=== PATIENT | female | born 2000 | race American Indian/Alaskan Native ===

== ENCOUNTER → 2020-08-13 16:20 | Outpatient (BNVA) | payer OTHER, SELFPAY | PROVIDERS: Visit Provider Nurse Practitioner Family | DX: Z11.59 Encounter for screening for other viral diseases (principal); J06.9 Acute upper respiratory infection, unspecified | CPT/HCPCS: 87635 ==

== ENCOUNTER → 2020-12-16 13:29 | Outpatient (BNVA) | payer OTHER, SELFPAY | PROVIDERS: Visit Provider Nurse Practitioner | DX: Z20.828 Contact with and (suspected) exposure to other viral communicable diseases (principal); J20.9 Acute bronchitis, unspecified | CPT/HCPCS: 87635 ==

== ENCOUNTER 2021-04-09 13:20 | Emergency (ER) | payer OTHER, SELFPAY ==
[2021-04-09 13:28] VITALS: BP 137/97; PULSE 84; RESP 16; TEMP 37.5; O2SAT 98; BMI 34.7
--- NOTE | 2021-04-09 13:33 | XR_ITS ---
WS: [id number] Exam: XR chest 1V portable [id number] Date/Time of Exam: 04/09/2021 1:38 PM Reason For Exam: fall No priors. Findings: The lungs are clear and fully expanded. Costophrenic angles are sharp. No infiltrates. Bronchovascula r relief appears normal. Cardiac silhouette is unremarkable. Bony elements are intact. XR/XR chest 1V portable [id number] IMPRESSION: Unremarkable chest radiograph.
--- NOTE | 2021-04-09 13:33 | XR_ITS ---
WS: [id number] Exam: XR shoulder LT min 2V* [id number] Date/Time of Exam: 04/09/2021 1:38 PM Reason For Exam: fall The projections of the shoulder reveal no fractures, anomalies, soft tissue swelling, or calcificatio ns. There is normal bony alignment. No irregularity of the bony architecture is noted. XR/XR shoulder LT min 2V* [id number] IMPRESSION: Negative left shoulder.
--- NOTE | 2021-04-09 13:47 | XR_ITS ---
WS: [id number] Exam: XR ribs LT mn 3V w CXR1V [id number] Date/Time of Exam: 04/09/2021 1:47 PM Reason For Exam: fall No acute left rib fracture or pneumothorax. The lungs are bilaterally clear. Normal cardiomediastinal structures. XR/XR ribs LT mn 3V w CXR1V [id number] IMPRESSION: 1. Unremarkable left rib study. No acute cardiopulmonary finding.
--- NOTE | 2021-04-09 13:47 | ED_ITS ---
HPI - Fall General: Chief Complaint: Fall Stated Complaint: L side pain, fell,hard to breathe. Time Seen by Provider: 04/09/21 13:44 Source: patient Mode of arrival: ambulatory Limitations: no limitations History of Present Illness: HPI Narrative: Patient is a 21-year-old female who presents to ED today with a complaint of left rib pain following a fall. Patient tells me 2 days ago she was going up a flight of stairs when she tripped and fell secondary to the stairs being wet. She states she landed onto the left side of her chest and has had pain since. She has not noticed any bruising. Denies shortness of breath or difficulty breathing. No other injury sustained. MD complaint: fall Onset (ago): day(s) Fall from: standing Fall witnessed: no Place fall occurred: home Loss of consciousness: None Prolonged down time: no Symptoms prior to fall: none Context: tripped/slipped Location of injury: chest Associated symptoms-after fall: Reports no associated symptoms and chest pain (chest wall pain); Denies abdominal pain, difficulty walking, headache(s), lightheadedness or neck pain Review of Systems Const: Denies: fever(s) Eyes: Denies: change in vision or blurry vision Card: Reports: chest pain (chest wall pain); Denies: palpitations, irregular heart rhythm, edema, swelling of feet/ankles, lightheadedness, syncope, pre-syncope, dyspnea on exertion, orthopnea or leg pain with exertion Resp: Denies: dyspnea, wheezing, stridor, hemoptysis or chest congestion GI: Denies: abdominal pain, nausea or vomiting Musc: Denies: neck pain, back pain, extremity pain or joint pain Neuro: Denies: headache(s), difficulty walking or dizziness [facility] PFSH: Social History Smoking and tobacco status: current every day smoker e-cigarettes Female Reproductive History: Date of last menstrual period: 04/09/21 Physical Exam Const: COMMON NORMALS: no acute distress, average body habitus, patient oriented x3, no limitations, healthy appearing, alert and well nourished GENERAL APPEARANCE: cooperative ORIENTATION/CONSCIOUSNESS: Yes awake, Yes oriented to person, Yes oriented to place and Yes oriented to time HENMT: COMMON NORMALS: normocephalic and atraumatic HEAD & SCALP: normocephalic and atraumatic Chest: COMMONS NORMALS: normal inspection of the chest OTHER: TTP L anterior mid to lower ribs; no crepitus Resp: COMMON NORMALS: normal respiratory effort and clear to auscultation bilaterally AUSCULTATION: clear to auscultation bilaterally Cardio: COMMON NORMALS: regular rate and regular rhythm RATE: regular rate RHYTHM: regular rhythm GI: COMMON NORMALS: Normal to inspection, nondistended, normoactive bowel sounds present, Soft to palpation, non-tender, No hepatosplenomegaly present and no masses PALPATION: Yes Soft to palpation and Yes No hepatosplenomegaly present Extremity: COMMON NORMALS: normal to inspection and full ROM GENERAL: Yes normal exam except as noted Neuro: COMMON NORMALS: patient oriented x3 SENSORIUM/ORIENTATION: Yes alert, Yes oriented to person, Yes oriented to place and Yes oriented to time Skin: COMMON NORMALS: no rashes or lesions noted GENERAL SKIN EXAM: no rashes or lesions noted TRAUMA: no lacerations or abrasions Course Vital Signs: Vital signs: Vital Signs Temperature 99.5 F 04/09/21 13:28 Pulse Rate 84 04/09/21 13:28 Respiratory Rate 16 04/09/21 13:28 Blood Pressure 137/97 04/09/21 13:28 Pulse Oximetry 98 04/09/21 13:28 MDM - Fall MDM Narrative: Medical decision making narrative: CXR and L shoulder XRs initially ordered from triage based on complaint however after examination I cancelled this and just ordered designated rib films. Unfortunately XR did not see this in time and they completed the previous orders. Imaging Data^: L ribs/CXR: Radiologist's impression: [address] [address] XRay Report Signed Patient: Huma Mendez Unit #: [id number] : 2000 Age/Sex: 21 / F ADM Date: 04/09/21 Loc: ER Room/Bed: Attending Dr: Ordering Provider/Ordering MD: Mellissa Braden Date of Service: 04/09/21 Procedure(s): XR ribs LT mn 3V w CXR1V 34197 Accession Number(s): [id number] Report Number: [id number] WS: [id number] Exam: XR ribs LT mn 3V w CXR1V [id number] Date/Time of Exam: 04/09/2021 1:47 PM Reason For Exam: fall No acute left rib fracture or pneumothorax. The lungs are bilaterally clear. Normal cardiomediastinal structures. XR/XR ribs LT mn 3V w CXR1V [id number] IMPRESSION: 1. Unremarkable left rib study. No acute cardiopulmonary finding. Dictated By: Cody Briones DO Signed By: Cody Briones DO Signed Date/Time: 04/09/211418 DD/ 16 Discharge Plan Discharge Patient Disposition: Home Clinical Impression: Contusion of left chest wall Qualifiers: Encounter type: initial encounter Qualified Code(s): S20.212A - Contusion of left front wall of thorax, initial encounter Condition: Stable Prescriptions: No Action albuterol sulfate [Ventolin HFA] 90 mcg/actuation HFA aerosol inhaler 2 puff inhalation QID PRN (Reason: shortness of breath or wheezing) Qty: 6.7 RF: 0 ondansetron 4 mg tablet,disintegrating 4 mg PO Q8H PRN (Reason: nausea and vomiting) Qty: 20 RF: 0 Discharge Orders: Discharge ED (Routine); Ordered 04/09/21 Ordered By: Mellissa Braden Patient Instructions: Chest Pain - Chest Wall, Contusion Coding Level of Care Code ED Insurance Adjustor for Chg Fwd Exam Comprehensive
== END 2021-04-09 14:33 | disposition home or self-care (01) ==
PROVIDERS: Emergency Provider Physician Assistant
DX: S20.212A Contusion of left front wall of thorax, initial encounter (principal); F17.290 Nicotine dependence, other tobacco product, uncomplicated; W19.XXXA Unspecified fall, initial encounter
CPT/HCPCS: 71045; 71101; 73030; 99283

== ENCOUNTER → 2025-10-01 12:58 | Outpatient (BNVA) | payer OTHER, SELFPAY | PROVIDERS: Visit Provider Nurse Practitioner | DX: R50.9 Fever, unspecified (principal) | CPT/HCPCS: 87400; 87426 ==